=== PATIENT | male | born 1960 | race Caucasian/White ===

== ENCOUNTER 2024-02-11 10:25 | Emergency (ER) | payer BC, MEDICARE ==
[2024-02-11] MEDS ORDERED: Sodium Chloride 0.9% 10 ML Syringe FLUSH PRN (11:09)
[2024-02-11 12:59] LABS: BASOPHILS PERCENT AUTO 0.4 % (0.0-1.0); EOSINOPHILS PERCENT AUTO 0.3 % (1.0-3.0); HEMATOCRIT 53.2 % (40.0-54.0); HEMOGLOBIN 17.6 g/dL (14.0-18.0); LYMPHOCYTES PERCENT AUTO 13.9 % (20.5-50.1); MEAN CORPUSCULAR HEMOGLOBIN 29.8 pg (27.0-34.0); MEAN CORPUSCULAR HGB CONC 33.1 g/dL (33.0-35.0); PLATELET COUNT,PLT 218 10^3/uL (150-450); RED BLOOD CELL COUNT 5.91 10^6/uL (4.6-6.2); WHITE BLOOD CELL COUNT,WBC 12.6 10^3/uL (5.0-10.0)
[2024-02-11 13:21] LABS: A/G RATIO 1.3; ALANINE AMINOTRANSFERASE,ALT 72 U/L (16-63); ALBUMIN 4.2 g/dL (3.4-5.0); ALKALINE PHOSPHATASE 47 U/L (46-116); ANION GAP 13.9 mEq/L (7-13); ASPARTATE AMNIOTRANSFERASE,AST 45 U/L (15-37); BILIRUBIN TOTAL 0.9 mg/dL (0.2-1.0); BLOOD UREA NITROGEN,BUN 42 mg/dL (7-18); CALCIUM 9.7 mg/dL (8.5-10.1); CARBON DIOXIDE,CO2 29 mmol/L (21-32); CHLORIDE,CL 101 mmol/L (98-107); ESTIMATED GFR 67 mL/min (>=60); GLUCOSE RANDOM 162 mg/dL (70-99); LIPASE 29 U/L (16-77); POTASSIUM,K 2.9 mmol/L (3.5-5.1); PROTEIN TOTAL,TP 7.5 g/dL (6.4-8.2); SODIUM,NA 141 mmol/L (136-145)
[2024-02-11 13:48] LABS: LYMPHOCYTES % ATYPICAL MANUAL 5 %; LYMPHOCYTES PERCENT MAN 9 % (20-50); MONOCYTES PERCENT MAN 10 % (2-8); SEG NEUTROPHILS PERCENT MAN 76 % (42-75)
[2024-02-11] MEDS ORDERED: Naloxone 2 MG/2 ML Syringe IVPUSH PRN (14:21)
[2024-02-11] MEDS ORDERED: Magnesium Sulfate/Water 2 GM in Premix Bag 1 BAG IV ONE (14:25)
[2024-02-11 14:56] LABS: INFLUENZA A NAA NEGATIVE (NEGATIVE); INFLUENZA B NAA NEGATIVE (NEGATIVE)
[2024-02-11] MEDS: Morphine 2 MG/ML SYRINGE IVPUSH ONE (15:02)
[2024-02-11] MEDS: Iopamidol 612 MG/ML 100 ML Bottle IVPUSH ONE (15:04)
[2024-02-11] MEDS: Metoclopramide 10 MG/2 ML SDV IVPUSH ONE (15:04)
[2024-02-11 15:05] LABS: CORONAVIRUS COVID-19 NAA POSITIVE (NEGATIVE)
[2024-02-11] MEDS: Potassium Chloride 20 MEQ in Premix Bag 1 BAG IV ONE (15:10)
[2024-02-11] MEDS: Sodium Chloride 0.9% 1,000 ML IV ONE ×2 (15:16→16:47)
[2024-02-11 16:58] LABS: APPEARANCE,URINE CLEAR (CLEAR); BILIRUBIN,URINE NEGATIVE (NEGATIVE); COLOR,URINE YELLOW (YELLOW); GLUCOSE,URINE NEGATIVE (NEGATIVE); KETONES,URINE NEGATIVE (NEGATIVE); LEUKOCYTE ESTERASE,URINE NEGATIVE (NEGATIVE); NITRITE,URINE NEGATIVE (NEGATIVE); OCCULT BLOOD,URINE NEGATIVE (NEGATIVE); PH,URINE 6.5 (5.0-9.0); PROTEIN,URINE NEGATIVE (NEGATIVE); UROBILINOGEN,URINE 0.2 mg/dL (0.2-1.0)
[2024-02-11] MEDS: cefTRIAXone 2 GM in Sodium Chloride 0.9% 100 ML IV ONE (17:08)
[2024-02-11] MEDS ORDERED: Benzocaine 20% Topical Spray UD MUCMEM ONE (17:52)
== END 2024-02-11 18:10 ==
LOC: DL.ED 10:25
DX: K56.609 Unspecified intestinal obstruction, unspecified as to partial versus complete obstruction (principal); I10 Essential (primary) hypertension; E11.9 Type 2 diabetes mellitus without complications; Z87.891 Personal history of nicotine dependence
CPT/HCPCS: 0240U; 36415; 43752; 71260; 74177; 80053; 81003; 83605; 83690; 83735; 84484; 85025; 87040; 93005; 96365; 96366; 96367; 96375; 99285; J0696; J2270; J2765; J3480; J3490; J7030; Q9967; 93010; 99284